=== PATIENT | male | born 1965 | race Caucasian/White ===

== ENCOUNTER → 2025-04-12 07:17 | Outpatient (REF) | payer OTHER, SELFPAY | LOC: HWRCS 07:17 | PROVIDERS: ATTENDING PHYSICIAN Internal Medicine Cardiovascular Disease; FAMILY PHYSICIAN Nurse Practitioner Family | DX: I25.810 Atherosclerosis of coronary artery bypass graft(s) without angina pectoris (principal) | CPT/HCPCS: 93306 ==

== ENCOUNTER → 2025-05-15 14:09 | Outpatient (REF) | payer OTHER, SELFPAY | LOC: MRI 3T 14:09 | PROVIDERS: ATTENDING PHYSICIAN Student in an Organized Health Care Education/Training Program; FAMILY PHYSICIAN Nurse Practitioner Family | DX: M25.561 Pain in right knee (principal) | CPT/HCPCS: 73721 ==